=== PATIENT | female | born 1955 | race Caucasian/White ===

== ENCOUNTER → 2016-09-16 | Outpatient (CLI) | payer MEDICARE, OTHER | LOC: KOH-I 15:36 | DX: K21.0 Gastro-esophageal reflux disease with esophagitis (principal); R10.13 Epigastric pain; K76.0 Fatty (change of) liver, not elsewhere classified; R16.0 Hepatomegaly, not elsewhere classified | CPT/HCPCS: 76705 ==

== ENCOUNTER → 2017-01-17 | Outpatient (CLI) | payer MEDICARE, OTHER | LOC: KOH-I 09:29 | DX: R22.42 Localized swelling, mass and lump, left lower limb (principal); F17.200 Nicotine dependence, unspecified, uncomplicated | CPT/HCPCS: 73700 ==

== ENCOUNTER → 2020-08-10 | Outpatient (CLI) | payer MEDICARE, OTHER ==
[~2020-08-10] MED LIST: ADULT LOW DOSE81 MG PO; CARAFATE1 GM/10 ML PO; CARBAMAZEPINE200 MG PO; CLOPIDOGREL75 MG PO; DICYCLOMINE HCL20 MG PO; DILTIAZEM 24HR240 M1 PO; ESTRACE0.5 MG PO; GRALISE300 MG PO; PANTOPRAZOLE SO40 MG PO; PRAVACHOL40 MG PO; PROAIR HFA8.5 GM INH; SPIRONOLACTONE1 EACH PO; SYMBICORT 160-1 INHA INH; VITAMIN D325 MCG PO; ZESTRIL10 MG PO; ZOFRAN ODT 4 MG4 MG PO
== END ==
LOC: CT 11:00
DX: R91.8 Other nonspecific abnormal finding of lung field (principal); M81.0 Age-related osteoporosis without current pathological fracture
CPT/HCPCS: 71250; 77080

== ENCOUNTER → 2020-09-25 | Outpatient (CLI) | payer MEDICARE, OTHER ==
[2020-09-25 17:01] LABS: BUN/CREATININE RATIO 19 (0-10)
[2020-09-26 10:14] LABS: CREATININE, URINE 23.8 mg/dL (Not Estab.); MICROALB/CREAT RATIO <13 (0-29)
== END ==
LOC: LAB 13:18
PROVIDERS: Internal Medicine Nephrology
DX: I10 Essential (primary) hypertension (principal); E87.3 Alkalosis
CPT/HCPCS: 36415; 80048; 82043; 82570; 82803

== ENCOUNTER → 2020-11-07 | Outpatient (CLI) | payer MEDICARE, OTHER | LOC: EXRD 08:53 | DX: R10.84 Generalized abdominal pain (principal) | CPT/HCPCS: 76700 ==

== ENCOUNTER → 2020-11-21 | Outpatient (CLI) | payer MEDICARE, OTHER | LOC: RT 13:03 | DX: I10 Essential (primary) hypertension (principal); I45.10 Unspecified right bundle-branch block | CPT/HCPCS: 93005 ==

== ENCOUNTER → 2020-11-23 | Outpatient (CLI) | payer MEDICARE, OTHER | LOC: MAMO 10-31 11:30 | DX: Z12.31 Encounter for screening mammogram for malignant neoplasm of breast (principal) | CPT/HCPCS: 77063; 77067 ==

== ENCOUNTER → 2020-12-12 | Outpatient (CLI) | payer MEDICARE, OTHER | LOC: US 11-23 09:30 → NM 12-08 09:00 → US 12-11 15:00 | DX: E04.2 Nontoxic multinodular goiter (principal) | CPT/HCPCS: 76536 ==

== ENCOUNTER → 2020-12-19 | Outpatient (CLI) | payer MEDICARE, OTHER | LOC: NM 12:26 | DX: R10.11 Right upper quadrant pain (principal) | CPT/HCPCS: 78227; A9537; J2805 ==

== ENCOUNTER → 2020-12-27 | Outpatient (CLI) | payer MEDICARE, OTHER | LOC: MAMO 12:34 | DX: R92.8 Other abnormal and inconclusive findings on diagnostic imaging of breast (principal); N63.14 Unspecified lump in the right breast, lower inner quadrant | CPT/HCPCS: 76641-RT; 77065; G0279 ==

== ENCOUNTER → 2021-07-05 | Outpatient (CLI) | payer MEDICARE, OTHER | LOC: KOH-I 14:59 | DX: M79.672 Pain in left foot (principal); M19.072 Primary osteoarthritis, left ankle and foot | CPT/HCPCS: 73630 ==

== ENCOUNTER → 2021-07-12 | Outpatient (CLI) | payer MEDICARE, OTHER | LOC: EXRD 10:19 | DX: Z01.818 Encounter for other preprocedural examination (principal); R93.6 Abnormal findings on diagnostic imaging of limbs | CPT/HCPCS: 93926 ==

== ENCOUNTER → 2021-09-07 | Outpatient (CLI) | payer MEDICARE, OTHER | LOC: EMI 12:26 | DX: G44.40 Drug-induced headache, not elsewhere classified, not intractable (principal); G44.89 Other headache syndrome; G43.009 Migraine without aura, not intractable, without status migrainosus; G31.9 Degenerative disease of nervous system, unspecified; R90.82 White matter disease, unspecified | CPT/HCPCS: 70551 ==

== ENCOUNTER → 2021-09-17 | Outpatient (CLI) | payer MEDICARE, OTHER | LOC: KOH-I 09-11 10:00 | DX: R91.8 Other nonspecific abnormal finding of lung field (principal); J43.9 Emphysema, unspecified | CPT/HCPCS: 71250 ==

== ENCOUNTER → 2021-12-24 | Outpatient (CLI) | payer MEDICARE, OTHER | LOC: KOH-I 13:24 | DX: I25.119 Atherosclerotic heart disease of native coronary artery with unspecified angina pectoris (principal); R06.02 Shortness of breath; I70.203 Unspecified atherosclerosis of native arteries of extremities, bilateral legs; R55 Syncope and collapse; I10 Essential (primary) hypertension; I65.23 Occlusion and stenosis of bilateral carotid arteries | CPT/HCPCS: 93880; 93925 ==